=== PATIENT | female | born 1990 | race Two or more races ===

== ENCOUNTER 2020-04-20 03:14 | Emergency (ER) | payer BC, OTHER ==
[~2020-04-20] VITALS: Ht 157.5 cm; Wt 44.5 kg
[2020-04-20 03:15] VITALS: BP 142/99
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
[2020-04-20] MEDS ORDERED: FLUORESCEIN SODIUM OPHTH 1 EA STRIP ONE (03:23)
[2020-04-20] MEDS ORDERED: LORAZEPAM 0.5 MG TABLET ONE (03:31)
--- NOTE | 2020-04-20 03:31 | NUR ---
AT THE BED SIDE. PT VERY ANXIOUS. CONSTANLTLY CRYING. DR LEBLANC W/ A VERBAL ORDER OF ATIVAN 0.5MG PO ONCE NOTED AND CARRIED OUT.
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
--- NOTE | 2020-04-20 03:45 | NUR ---
RECEIVED VERBAL CONSENT FOR CT FROM PT'S AUNT, TIAGO.
--- NOTE | 2020-04-20 03:48 | NUR ---
PT TAKEN TO CT
--- NOTE | 2020-04-20 03:55 | NUR ---
[employer] AT THE BED SIDE
[2020-04-20] MEDS ORDERED: LORAZEPAM 1 MG TABLET PO ONE (04:00)
--- NOTE | 2020-04-20 04:02 | NUR ---
PT RETURNED FROM CT
--- NOTE | 2020-04-20 05:22 | NUR ---
Patient discharged to home in stable condition. Written and verbal after care instructions given. Patient/Family verbalizes understanding of instruction.
== END 2020-04-20 05:23 | disposition home or self-care (01) ==
LOC: ER 03:15
DX: H11.31 Conjunctival hemorrhage, right eye (principal); R51 Headache; F31.9 Bipolar disorder, unspecified; F41.9 Anxiety disorder, unspecified; Z88.8 Allergy status to other drugs, medicaments and biological substances
CPT/HCPCS: 70486-TC